=== PATIENT | male | born 1965 | race Caucasian/White ===

== ENCOUNTER 2017-09-23 01:53 | Day surgery (SDC) | payer BC, OTHER ==
[~2017-09-23] VITALS: Ht 170.2 cm; Wt 93.4 kg
[~2017-09-23 01:53] MED LIST: BECL8.7A6; CEPH-13 PO; FENO145T36 PO; IBUP-1618 PO; LOSA-54 PO; LOSA100T67 PO; MULT-1335 PO; OXYC-865 PO
[2017-09-23] MEDS ORDERED: PROPOFOL EMUL(*) 10MG/ML 20 ML 20 ML ONE (08:51)
[2017-09-23 11:36] VITALS: BP 131/109
[2017-09-23] MEDS ORDERED: NORMOSOL R SOLN(*) 1000 ML BAG 1,000 ML IV PRN (12:00)
[2017-09-23] MEDS ORDERED: LIDOCAINE/SOD BICARB 8.4% SYR ID ONE (12:00)
[2017-09-23 13:09] VITALS: BP 100/63
[2017-09-23 13:15] VITALS: BP 99/67
[2017-09-23 13:30] VITALS: BP 107/66
[2017-09-23 13:48] VITALS: BP 116/81
[2017-09-23 13:55] VITALS: BP_SYST 125; BP_SYST 135; BP_DIAS 100; BP_DIAS 94
== END 2017-09-23 14:11 | disposition home or self-care (01) ==
LOC: OR 01:53
PROVIDERS: ATTEND Family Medicine
DX: Z12.11 Encounter for screening for malignant neoplasm of colon (principal); D12.2 Benign neoplasm of ascending colon
CPT/HCPCS: 00811; 45385; 88305; J2704

== ENCOUNTER 2017-09-25 03:18 | Emergency (ER) | payer BC ==
--- NOTE | 2017-09-25 03:22 | ER Report ---
History and Physical Time Seen By MD: 03:21 HPI/ROS CHIEF COMPLAINT: r flank pain HISTORY OF PRESENT ILLNESS: Pt started with a dull ache in his r flank pain a week ago. Pt thought he had a muscle strain. Pt turned in bed tonight and had sudden onset of severe sharp pain. no nausea, no vomiting. no dysuria. Pt had a colonoscopy on and has only had a small bm since then. Pt had a bx for a polyp. Pt denies abdominal pain. no chest pain. Pt does have sob when the pain is severe. Pt has a remote hx of kidney stone but states that this pain is not as severe. Pt has not had any rashes. Pt states pain is worse when twisting or lifting his legs. no radiation down the legs. REVIEW OF SYSTEMS: Constitutional: No fever, no chills. Eyes: No discharge. ENT: No sore throat. Cardiovascular: No chest pain, no palpitations. Respiratory: No cough, no shortness of breath. Gastrointestinal: No abdominal pain, no vomiting. Genitourinary: No hematuria. Musculoskeletal: + back pain. Skin: No rashes. Neurological: No headache. Allergies: Coded Allergies: No Known Allergies (Verified Allergy, Mild, 05/20/15) Home Meds Reported Medications Multivitamin With Minerals (MULTIPLE VITAMIN) 1 Each Tablet, 1 EACH PO, TAB 09/15/17 Fenofibrate Nanocrystallized (FENOFIBRATE) 145 Mg Tablet, 145 MG PO QDAY 09/15/17 Losartan/Hydrochlorothiazide (LOSARTAN-HCTZ 100-25 MG TAB) 1 Each Tablet, 1 EACH PO QDAY 09/15/17 Past Medical/Surgical History Pmhx: htn, hyperlipid, blind L eye, kidney stone Reviewed Nurses Notes: Yes Hx Smoking: No (chews tobacco, 1/2 can per day for 40yrs ) Smoking Status: Never Smoker Hx Substance Use Disorder: No Hx Alcohol Use: Yes (1-2 PER DAY ) Constitutional Vital Sign - Last 24 Hours 09/25/17 09/25/17 09/25/17 09/25/17 03:23 03:27 03:30 03:33 Temp 97.6 Pulse 70 72 Resp 16 B/P (MAP) 122/75 122/75 (91) 110/97 (101) Pulse Ox 93 94 O2 Delivery Room Air 6/909/25/17 09/25/17 09/25/17 03:48 04:10 04:15 04:30 Pulse 71 74 67 B/P (MAP) 131/91 (104) 123/85 (98) Pulse Ox 93 93 92 Physical Exam General Appearance: The patient is alert, has no immediate need for airway protection and no signs of toxicity. Eyes: Pupils equal and round no pallor or injection, EOMI ENT: no pharyngeal erythema or exudates, Mucous membranes are moist Respiratory: There are no retractions, lungs are clear to auscultation. Cardiovascular: Regular rate and rhythm. pulses are equal and symmetrical Gastrointestinal: Abdomen is soft and non tender, no masses, bowel sounds normal, no guarding, no rigidity or rebound Neurological: Cranial nerves II-XII grossly intact, no sensory or motor loss Skin: Warm and dry, no rashes. Musculoskeletal: Neck is supple non tender, no vertebral tenderness, + r L1-4 paravertebral tenderness, , + r cva tenderness Extremities are nontender, nonswollen and have full range of motion. DIFFERENTIAL DIAGNOSIS: After history and physical exam differential diagnosis was considered for kidney stone, muscle strain, shingles, appy, gb, pyelonephritis Medical Decision Making Data Points Result Diagram: 09/25/17 0337 09/25/17 033 Laboratory Hematology Test 09/25/17 03:24 09/25/17 03:37 Urine Color Yellow Urine Clarity Clear Urine pH 6.0 pH (4.8-9.5) Urine Specific [place] 1.010 Urine Protein Negative mg/dL (NEGATIVE) Urine Glucose (UA) Negative mg/dL (NEGATIVE) Urine Ketones Negative mg/dL (NEGATIVE) Urine Blood Negative (NEGATIVE) Urine Nitrite Negative (NEGATIVE) Urine Bilirubin Negative (NEGATIVE) Urine Urobilinogen Negative mg/dL (0.2-1.9) Urine Leukocyte Esterase Negative (NEGATIVE) Urine RBC None /HPF (0-2/HPF) Urine WBC <1 /HPF (0-5/HPF) Urine Squamous Epithelial Cells None /LPF (</=FEW) Urine Amorphous Crystals Few /HPF Urine Bacteria Few /HPF (NONE-FEW) Urine Hyaline Casts Few /LPF (NONE-FEW) Urine Mucus None /HPF (NONE-FEW) Red Blood Count 5.17 M/uL (4.00-5.60) Mean Corpuscular Volume 87.9 fL (80.0-96.0) Mean Corpuscular Hemoglobin 31.3 pg (26.0-33.0) Mean Corpuscular Hemoglobin Concent 35.6 g/dL (32.0-36.0) Red Cell Distribution Width 12.8 % (11.5-14.5) Mean Platelet Volume 7.5 fL (7.2-11.1) Neutrophils (%) (Auto) 47.6 % (39.4-72.5) Lymphocytes (%) (Auto) 37.8 % (17.6-49.6) Monocytes (%) (Auto) 10.5 % (4.1-12.4) Eosinophils (%) (Auto) 3.0 % (0.4-6.7) Basophils (%) (Auto) 1.1 % (0.3-1.4) Nucleated RBC Relative Count (auto) 0.0 /100WBC Neutrophils # (Auto) 2.5 K/uL (2.0-7.4) Lymphocytes # (Auto) 2.0 K/uL (1.3-3.6) Monocytes # (Auto) 0.6 K/uL (0.3-1.0) Eosinophils # (Auto) 0.2 K/uL (0.0-0.5) Basophils # (Auto) 0.1 K/uL (0.0-0.1) Nucleated RBC Absolute Count (auto) 0.00 K/uL Sodium Level 138 mmol/L (137-145) Potassium Level 3.7 mmol/L (3.5-5.0) Chloride Level 101 mmol/L (98-107) Carbon Dioxide Level 24 mmol/L (22-30) Blood Urea Nitrogen 21 mg/dl (9-21) Creatinine 1.20 mg/dl (0.66-1.25) Glomerular Filtration Rate Calc > 60.0 Random Glucose 113 mg/dl (75-110) Calcium Level 9.5 mg/dl (8.4-10.2) Total Bilirubin 0.5 mg/dl (0.2-1.3) Aspartate Amino Transf (AST/SGOT) 21 U/L (0-35) Alanine Aminotransferase (ALT/SGPT) 23 U/L (0-56) Alkaline Phosphatase 43 U/L (0-126) Total Protein 7.4 gm/dl (6.3-8.2) Albumin 4.5 g/dl (3.5-5.0) Lipase 152 U/L (23-300) Chemistry Test 09/25/17 03:24 09/25/17 03:37 Urine Color Yellow Urine Clarity Clear Urine pH 6.0 pH (4.8-9.5) Urine Specific [place] 1.010 Urine Protein Negative mg/dL (NEGATIVE) Urine Glucose (UA) Negative mg/dL (NEGATIVE) Urine Ketones Negative mg/dL (NEGATIVE) Urine Blood Negative (NEGATIVE) Urine Nitrite Negative (NEGATIVE) Urine Bilirubin Negative (NEGATIVE) Urine Urobilinogen Negative mg/dL (0.2-1.9) Urine Leukocyte Esterase Negative (NEGATIVE) Urine RBC None /HPF (0-2/HPF) Urine WBC <1 /HPF (0-5/HPF) Urine Squamous Epithelial Cells None /LPF (</=FEW) Urine Amorphous Crystals Few /HPF Urine Bacteria Few /HPF (NONE-FEW) Urine Hyaline Casts Few /LPF (NONE-FEW) Urine Mucus None /HPF (NONE-FEW) White Blood Count 5.3 k/uL (4.5-11.0) Red Blood Count 5.17 M/uL (4.00-5.60) Hemoglobin 16.2 g/dL (14.0-18.0) Hematocrit 45.5 % (42.0-52.0) Mean Corpuscular Volume 87.9 fL (80.0-96.0) Mean Corpuscular Hemoglobin 31.3 pg (26.0-33.0) Mean Corpuscular Hemoglobin Concent 35.6 g/dL (32.0-36.0) Red Cell Distribution Width 12.8 % (11.5-14.5) Platelet Count 276 K/uL (150-450) Mean Platelet Volume 7.5 fL (7.2-11.1) Neutrophils (%) (Auto) 47.6 % (39.4-72.5) Lymphocytes (%) (Auto) 37.8 % (17.6-49.6) Monocytes (%) (Auto) 10.5 % (4.1-12.4) Eosinophils (%) (Auto) 3.0 % (0.4-6.7) Basophils (%) (Auto) 1.1 % (0.3-1.4) Nucleated RBC Relative Count (auto) 0.0 /100WBC Neutrophils # (Auto) 2.5 K/uL (2.0-7.4) Lymphocytes # (Auto) 2.0 K/uL (1.3-3.6) Monocytes # (Auto) 0.6 K/uL (0.3-1.0) Eosinophils # (Auto) 0.2 K/uL (0.0-0.5) Basophils # (Auto) 0.1 K/uL (0.0-0.1) Nucleated RBC Absolute Count (auto) 0.00 K/uL Glomerular Filtration Rate Calc > 60.0 Calcium Level 9.5 mg/dl (8.4-10.2) Total Bilirubin 0.5 mg/dl (0.2-1.3) Aspartate Amino Transf (AST/SGOT) 21 U/L (0-35) Alanine Aminotransferase (ALT/SGPT) 23 U/L (0-56) Alkaline Phosphatase 43 U/L (0-126) Total Protein 7.4 gm/dl (6.3-8.2) Albumin 4.5 g/dl (3.5-5.0) Lipase 152 U/L (23-300) Urinalysis Test 09/25/17 03:24 Urine Color Yellow Urine Clarity Clear Urine pH 6.0 pH (4.8-9.5) Urine Specific [place] 1.010 Urine Protein Negative mg/dL (NEGATIVE) Urine Glucose (UA) Negative mg/dL (NEGATIVE) Urine Ketones Negative mg/dL (NEGATIVE) Urine Blood Negative (NEGATIVE) Urine Nitrite Negative (NEGATIVE) Urine Bilirubin Negative (NEGATIVE) Urine Urobilinogen Negative mg/dL (0.2-1.9) Urine Leukocyte Esterase Negative (NEGATIVE) Urine RBC None /HPF (0-2/HPF) Urine WBC <1 /HPF (0-5/HPF) Urine Squamous Epithelial Cells None /LPF (</=FEW) Urine Amorphous Crystals Few /HPF Urine Bacteria Few /HPF (NONE-FEW) Urine Hyaline Casts Few /LPF (NONE-FEW) Urine Mucus None /HPF (NONE-FEW) EKG/Imaging Imaging no acute findings ED Course/Re-evaluation ED Course UA neg blood or leuks/nitirates. Unlikely kidney stone or pylonephritis. I have high suspicion for muscleskeletal however with hx recent colonscopy will obtain CT to rule out any infection vs injury. 09/25/2017 3:59:03 am PT labs beverly stable. Pt states he feels okay unless he moves then the pain returns. 09/25/2017 4:41:47 am PT states his pain is improved since the toradol. CT and labs did not show an acute cause of his pain. I suspect pts pain could be muscleskeletal. Pt was instructed to follow up with his pcp or return to ed if symptoms do not improve. Decision to Disposition Date: Sep 25, 2017 Decision to Disposition Time: 04:42 Depart Departure Latest Vital Signs Vital Signs Date Time Temp Pulse Resp B/P (MAP) Pulse Ox O2 Delivery O2 Flow Rate FiO2 09/25/17 04:30 67 123/85 (98) 92 09/25/17 03:23 97.6 16 Room Air Impression: Primary Impression: Acute right flank pain Additional Impression: Back pain Condition: Improved Disposition: HOME OR SELF-CARE New Scripts Methocarbamol (ROBAXIN-750) 750 Mg Tablet 750 MG PO Q4H Y for BACK SPASM, #21 TAB Prov: LOVE EARLY DO 09/25/17 Departure Forms: ER Transition Record, Medications Reconciliation, Patient Portal Information Patient Instructions: Flank Pain (ED) Additional Instructions: Your blood and urine tests were stable. Your cat scan did not show an acute cause for your pain. It is possible that it is a musculoskeletal in nature. Recommend limit lifting, pushing and pulling. Motrin (advil, Ibuprofen) 600mg every 6 hours as needed for pain. Robaxin one every 4 hours as needed for back stiffness/ spasms. Follow up with your family doctor on Wednesday. If symptoms worsen prior to seeing your doctor then please return. Problem Qualifiers Additional Impression: Back pain Back pain location: back pain in unspecified location Chronicity: acute Back pain laterality: right Qualified Codes: M54.9 - Dorsalgia, unspecified LVOE EARLY DO Sep 25, 2017 03:21
[2017-09-25] MEDS ORDERED: KETOROLAC 15 MG/ML VIAL IVP ONE (03:30)
[2017-09-25] MEDS ORDERED: IOPAMIDOL 76% 75 ML INFUS BTL 75 ML ONE (03:44)
[2017-09-25 03:51] LABS: PLATELET COUNT, AUTOMATED 276 K/uL (150-450)
--- NOTE | 2017-09-25 04:29 | RADIOLOGY IMAGING REPORT ---
FACILITY: [facility] - [place] PATIENT NAME: Sharif Mejia : 1965 MR: [id number] V: [id number] EXAM DATE: ORDERING PHYSICIAN: LOVE EARLY TECHNOLOGIST: Location: [facility] Patient: Sharif Mejia : 1965 Visit/Account:[id number] Date of Sevice: 09/25/2017 EXAMINATION: CT Abdomen and Pelvis With Contrast 09/25/2017 3:29 AM HISTORY: r flank pain TECHNIQUE: Spiral scan was through the abdomen and pelvis during injection of nonionic iodinated in travenous contrast. Contrast: 75 mL of IV Isovue 370. One of the following dose optimization techniques was utilized in the performance of this exam: Autom ated exposure control; adjustment of the mA and/or kV according to the patient's size; or use of an i terative reconstruction technique. Specific details can be referenced in the facility's radiology C T exam operational policy. COMPARISON STUDIES: none. FINDINGS: Liver / biliary: Gallbladder is not inflamed. No visible cholelithiasis or biliary dilatation. Negati ve liver. Pancreas: negative Spleen: negative Adrenal glands: Mild benign-appearing thickening of the adrenals. Kidneys / retroperitoneum: No stone or obstruction. No enhancement features of pyelonephritis/UTI. Sm all upper pole cortical cyst on the right. Pelvic structures: negative Bowel / peritoneum / mesenteries: Normal appendix. No ileocecal area inflammatory change. No obstruct ion or focal abnormality. Vessels: Incidental duplicated right renal artery. Musculoskeletal / Body wall: Chronic bilateral L5 pars defects and 7 mm anterolisthesis L5 on S1. Tin y fatty umbilical hernia. Lymph node assessment: negative Lower chest: negative IMPRESSION: No acute abnormality evident. Normal appendix. Report Dictated By: Edmund Goodrich MD at 09/25/2017 4:19 AM Report E-Signed By: Edmund Goodrich MD at 09/25/2017 4:25 AM [id number]
[2017-09-25 04:30] VITALS: BP 123/85
[2017-09-25] MEDS ORDERED: ORPHENADRINE 60MG/2ML INJ IVP ONE (04:40)
[2017-09-25] MEDS ORDERED: METH-543 PO (04:45)
== END 2017-09-25 04:56 | disposition home or self-care (01) ==
LOC: ER 03:55
DX: R10.9 Unspecified abdominal pain (principal); M54.9 Dorsalgia, unspecified
CPT/HCPCS: 74177; 81001; 83690; 85025; 96374; 96375; 99284; J1885; J2360; Q9967; 82040; 82247; 82310; 82374; 82435; 82565; 82947; 84075; 84132; 84155; 84295; 84450; 84460; 84520